=== PATIENT | female | born 1965 | race Caucasian/White ===

== ENCOUNTER → 2018-12-26 | Outpatient (CLI) | payer BC ==
--- NOTE | 2018-12-27 10:45 | MM ---
Reason for exam: screening (asymptomatic). Last mammogram was performed 4 years and 8 months ago. History: Family history of breast cancer in maternal aunt at age 70, breast cancer in maternal grandmother at age 50, and breast cancer in paternal aunt at age 60. Benign left breast aspiration of the left breast, September 11, 2012. Benign right breast aspiration of the right breast, May 04, 2011. Took hormonal contraceptives for 4 years. Physical Findings: A clinical breast exam by your physician is recommended on an annual basis and results should be correlated with mammographic findings. MG 3D Screening Mammo W/Cad Bilateral CC and MLO view(s) were taken. Prior study comparison: April 23, 2014, bilateral MG diagnostic mammo w CAD [facility]IZA. August 28, 2012, CAD bilateral diagnostic mammogram. The breast tissue is heterogeneously dense. This may lower the sensitivity of mammography. Finding: There is a 12 mm circumscribed oval mass located 1-2 cm from the nipple in the anterior position of the right breast. Also, additional nodularity right breast CC 21/82 and MLO 33/86. ASSESSMENT: Incomplete: need additional imaging evaluation, BI-RAD 0 RECOMMENDATION: Ultrasound of the right breast. [facility] will attempt to contact patient to return for ultrasound.
== END | disposition home or self-care (01) ==
LOC: RADMAMWWP 15:23
PROVIDERS: ATTEND Obstetrics & Gynecology
DX: Z12.31 Encounter for screening mammogram for malignant neoplasm of breast (principal); Z80.3 Family history of malignant neoplasm of breast
CPT/HCPCS: 77063; 77067

== ENCOUNTER → 2019-01-10 | Outpatient (CLI) | payer BC ==
--- NOTE | 2019-01-10 09:28 | USB ---
Reason for exam: additional evaluation requested from abnormal screening. History: Family history of breast cancer in maternal aunt at age 70, breast cancer in maternal grandmother at age 50, and breast cancer in paternal aunt at age 60. Benign left breast aspiration of the left breast, September 11, 2012. Benign right breast aspiration of the right breast, May 04, 2011. Took hormonal contraceptives for 4 years. Physical Findings: Nurse did not find any significant physical abnormalities on exam. US Breast Workup Limited RT Right limited breast ultrasound including focal area of concern, retroareolar and axilla demonstrates a 0.5 x 0.6 x 0.4cm cystic lesion at 9 o'clock and a 1.0 x 0.8 x 0.7cm cystic lesion at 12 o'clock. These results were verbally communicated with the patient and result sheet given to the patient on 01/10/19. ASSESSMENT: Benign, BI-RAD 2 RECOMMENDATION: Return to routine screening mammogram schedule for both breasts.
== END | disposition home or self-care (01) ==
LOC: RADUSWWP 07:08
PROVIDERS: ATTEND Obstetrics & Gynecology
DX: R92.8 Other abnormal and inconclusive findings on diagnostic imaging of breast (principal)